=== PATIENT | female | born 1960 | race Caucasian/White ===

== ENCOUNTER 2016-12-15 08:33 | Day surgery (SDC) | payer MEDICARE, MEDICAID, OTHER ==
[~2016-12-15 08:33] MED LIST: RINGERS SOLUTION,LACTATED 1,000 ML IV PRN
[2016-12-15] MEDS ORDERED: RINGERS SOLUTION,LACTATED 1,000 ML IV ONE (09:21)
[2016-12-15] MEDS ORDERED: LIDOCAINE HCL/EPINEPHRINE 50 ML VIAL IJ ONE ×2 (10:40)
[2016-12-15] MEDS ORDERED: MORPHINE SULFATE 2 MG/ML DISP.SYRIN IV PRN (11:30)
[2016-12-15] MEDS ORDERED: oxyCODONE HCL/ACETAMINOPHEN 1 TAB TABLET PO PRN (11:31)
[2016-12-15] MEDS ORDERED: IBUPROFEN 800 MG TABLET PO PRN (11:31)
[2016-12-15] MEDS ORDERED: RINGERS SOLUTION,LACTATED 1,000 ML IV PRN (11:32)
--- NOTE | 2016-12-15 11:42 | OR ---
Operative Report - Dictated Report Narrative: DATE OF PROCEDURE: 12/15/2016 INDICATION: 56-year-old woman with menometrorrhagia and nonvisualized/ retrievable strings in office PREOPERATIVE DIAGNOSIS: Menometrorrhagia, lost Mirena IUD strings, intrauterine polyps POSTOPERATIVE DIAGNOSIS: Same PROCEDURE: Hysteroscopy, D&C , Polypectomy, removal and reinsertion of Mirena IUD SURGEON: Ewa Nolasco D.O. KINESEOLOGIST: None ANESTHESIA: IV sedation, Paracervical block ESTIMATED BLOOD LOSS: minimal URINE OUTPUT: not recorded FLUID REPLACEMENT: 500 mL FINDINGS: Small endometrial polyps on the anterior surface of the uterine cavity. Mirena in normal anatomic location with strings wrapped around the base. Uterus sounded to 7 cm. SPECIMEN(S): Endometrial curettings ,polyps TECHNIQUE: The patient was taken to the operating room and placed in dorsal lithotomy position after adequate IV sedation was obtained. After sterile prep and drape, the anterior lip of the cervix was grasped with a long Allis clamp. A paracervical block was given using a 1% lidocaine with epinephrine solution. The uterus sounded to 7 cm. The 5 mm hysteroscope was inserted into the uterine cavity with findings as noted above. The Mirena IUD was removed with the operative hysteroscopic graspers. One of the strings was broken. Using a # 2 curet, the entire uterine cavity was curettaged. The hysteroscope was reinserted noting thorough sampling of the entire uterine cavity and removal of the small polyps. The Mirena IUD was cleaned, irrigated, and reinserted into the uterine cavity through the outer sleeve of the hysteroscope. Proper placement was confirmed hysteroscopically. All instruments removed from the cervix and vagina. The Mirena string was visualized 3 cm from the cervical os. Sponge, lap, instrument, needle count correct x 2. DISPOSITION: The patient was transferred to the post anesthesia care unit in good condition.
[2016-12-15 12:36] VITALS: BP 125/86
== END 2016-12-15 08:34 | disposition home or self-care (01) ==
LOC: AMB 08:33
PROVIDERS: ATTEND Obstetrics & Gynecology
PROC: 0UDB8ZX Extraction of Endometrium, Via Natural or Artificial Opening Endoscopic, Diagnostic (ICD-10-PCS; 2016-12-15)
PROC: 0UPD8HZ Removal of Contraceptive Device from Uterus and Cervix, Via Natural or Artificial Opening Endoscopic (ICD-10-PCS; 2016-12-15)
PROC: 0UB98ZX Excision of Uterus, Via Natural or Artificial Opening Endoscopic, Diagnostic (ICD-10-PCS; principal; 2016-12-15 10:30)
DX: N84.0 Polyp of corpus uteri (principal); N92.1 Excessive and frequent menstruation with irregular cycle; T83.32XA Displacement of intrauterine contraceptive device, initial encounter; Z68.34 Body mass index [BMI] 34.0-34.9, adult